=== PATIENT | female | born 1985 | race Caucasian/White ===

== ENCOUNTER → 2020-07-22 13:45 | Outpatient (BNVA) | payer BC, SELFPAY | PROVIDERS: Family Provider Family Medicine; PCP Family Medicine; Visit Provider Obstetrics & Gynecology | DX: E28.2 Polycystic ovarian syndrome (principal); Z12.4 Encounter for screening for malignant neoplasm of cervix | CPT/HCPCS: 88175 ==

== ENCOUNTER 2020-10-13 10:06 | Outpatient (CLI) | payer BC, SELFPAY ==
[2020-10-13 12:00] LABS: Estmated Average Glucose 94; Hemoglobin A1C 4.9 % (4.0-6.0)
== END 2020-10-13 10:07 | disposition home or self-care (01) ==
PROVIDERS: PCP Family Medicine; Visit Provider Internal Medicine
DX: E03.9 Hypothyroidism, unspecified (principal); E28.2 Polycystic ovarian syndrome; E66.9 Obesity, unspecified; R53.82 Chronic fatigue, unspecified; R63.5 Abnormal weight gain
CPT/HCPCS: 36415; 83036; 84439; 84443; 99205

== ENCOUNTER 2020-10-29 15:17 | Outpatient (CLI) | payer BC, SELFPAY ==
[2020-10-29 16:27] LABS: Total Volume Urine 1225 ml
[2020-10-29 16:37] LABS: Urine Creatinine 120 mg/dL (28-217)
[2020-11-08 16:15] LABS: Free Cortisol Urine 25.6; Total Urine 1225; Urine Creatinine 1.48
== END 2020-10-29 15:18 | disposition home or self-care (01) ==
PROVIDERS: PCP Family Medicine; Visit Provider Internal Medicine
DX: E03.9 Hypothyroidism, unspecified (principal); E28.2 Polycystic ovarian syndrome; R63.5 Abnormal weight gain
CPT/HCPCS: 82530; 82570

== ENCOUNTER 2020-11-15 12:00 | Outpatient (CLI) | payer BC, SELFPAY | END 2020-11-15 12:01 | disposition home or self-care (01) | LOC: SLEEP 11-16 11:31 | PROVIDERS: PCP Family Medicine; Visit Provider Internal Medicine | DX: R53.82 Chronic fatigue, unspecified (principal) | CPT/HCPCS: G0399 ==

== ENCOUNTER 2020-12-02 11:10 | Outpatient (CLI) | payer BC, SELFPAY ==
[2020-12-02 12:07] LABS: Free T4 Free Thyroxine 1.39 ng/dL (0.82-1.77)
== END 2020-12-02 11:11 | disposition home or self-care (01) ==
PROVIDERS: PCP Family Medicine; Visit Provider Internal Medicine
DX: E03.9 Hypothyroidism, unspecified (principal)
CPT/HCPCS: 36415; 84439; 84443

== ENCOUNTER 2021-05-19 11:14 | Outpatient (CLI) | payer BC, SELFPAY ==
[2021-05-19 12:36] LABS: Free T4 Free Thyroxine 1.05 ng/dL (0.82-1.77); Thyroid Stimulating Hormone 8.92 uIU/mL (0.27-4.20)
[2021-05-20 15:52] LABS: Thyroglobulin AB 1 IU/mL (< or = 1); Thyroid Peroxidase Antobodies 108 IU/mL (<9)
== END 2021-05-19 11:15 | disposition home or self-care (01) ==
LOC: LAB 11:24
PROVIDERS: PCP Family Medicine; Visit Provider Internal Medicine
DX: E03.9 Hypothyroidism, unspecified (principal)
CPT/HCPCS: 84439; 84443; 86376; 86800

== ENCOUNTER 2021-10-13 09:29 | Outpatient (CLI) | payer BC, SELFPAY ==
[2021-10-13 10:51] LABS: Free T4 Free Thyroxine 1.43 ng/dL (0.82-1.77); Thyroid Stimulating Hormone 3.67 uIU/mL (0.27-4.20)
== END 2021-10-13 09:30 | disposition home or self-care (01) ==
PROVIDERS: PCP Family Medicine; Visit Provider Internal Medicine
DX: E03.9 Hypothyroidism, unspecified (principal)
CPT/HCPCS: 84439; 84443

== ENCOUNTER 2022-01-17 12:49 | Outpatient (CLI) | payer BC, SELFPAY ==
[2022-01-17 14:01] LABS: Free T4 Free Thyroxine 2.04 ng/dL (0.82-1.77); Thyroid Stimulating Hormone 0.02 uIU/mL (0.27-4.20)
== END 2022-01-17 12:50 | disposition home or self-care (01) ==
LOC: LAB 12:51
PROVIDERS: PCP Family Medicine; Visit Provider Internal Medicine
DX: E03.9 Hypothyroidism, unspecified (principal); R53.83 Other fatigue; R63.5 Abnormal weight gain
CPT/HCPCS: 36415; 84439; 84443

== ENCOUNTER 2022-04-11 09:02 | Outpatient (CLI) | payer BC, SELFPAY ==
[2022-04-11 09:57] LABS: Free T4 Free Thyroxine 1.31 ng/dL (0.82-1.77); Thyroid Stimulating Hormone 5.94 uIU/mL (0.27-4.20)
== END 2022-04-11 09:03 | disposition home or self-care (01) ==
LOC: LAB 09:02
PROVIDERS: PCP Family Medicine; Visit Provider Internal Medicine
DX: R00.0 Tachycardia, unspecified (principal); R53.83 Other fatigue; R63.5 Abnormal weight gain; E03.9 Hypothyroidism, unspecified
CPT/HCPCS: 84439; 84443

== ENCOUNTER 2022-08-16 09:52 | Outpatient (CLI) | payer BC, SELFPAY ==
[2022-08-16 11:48] LABS: Free T4 Free Thyroxine 1.43 ng/dL (0.82-1.77); Thyroid Stimulating Hormone 1.96 uIU/mL (0.27-4.20)
== END 2022-08-16 09:53 | disposition home or self-care (01) ==
LOC: LAB 09:57
PROVIDERS: PCP Family Medicine; Visit Provider Internal Medicine
DX: E03.9 Hypothyroidism, unspecified (principal)
CPT/HCPCS: 36415; 84439; 84443

== ENCOUNTER → 2022-09-27 10:00 | Outpatient (BNVA) | payer BC, SELFPAY | PROVIDERS: PCP Family Medicine; Visit Provider Nurse Practitioner Women's Health | DX: E28.2 Polycystic ovarian syndrome (principal); Z12.4 Encounter for screening for malignant neoplasm of cervix | CPT/HCPCS: 87624 ==

== ENCOUNTER → 2022-11-15 16:44 | Outpatient (BNVA) | payer BC, SELFPAY | PROVIDERS: PCP Family Medicine; Visit Provider Internal Medicine | DX: E03.9 Hypothyroidism, unspecified (principal) | CPT/HCPCS: 84439; 84443; 84480 ==

== ENCOUNTER 2023-03-23 14:02 | Outpatient (CLI) | payer BC, SELFPAY ==
[2023-03-23 15:34] LABS: Free T4 Free Thyroxine 1.86 ng/dL (0.82-1.77); Thyroid Stimulating Hormone 2.32 uIU/mL (0.27-4.20)
== END 2023-03-23 14:03 | disposition home or self-care (01) ==
PROVIDERS: PCP Family Medicine; Visit Provider Internal Medicine
DX: E03.9 Hypothyroidism, unspecified (principal)
CPT/HCPCS: 36415; 84439; 84443

== ENCOUNTER 2023-03-29 10:18 | Outpatient (CLI) | payer BC, SELFPAY ==
[2023-03-29 11:46] LABS: Free T4 Free Thyroxine 1.91 ng/dL (0.82-1.77)
== END 2023-03-29 10:19 | disposition home or self-care (01) ==
PROVIDERS: PCP Family Medicine; Visit Provider Internal Medicine
DX: E03.9 Hypothyroidism, unspecified (principal); E28.2 Polycystic ovarian syndrome
CPT/HCPCS: 36415; 84439

== ENCOUNTER 2023-05-03 11:55 | Outpatient (CLI) | payer BC, SELFPAY | END 2023-05-03 11:56 | disposition home or self-care (01) | PROVIDERS: PCP Nurse Practitioner Family; Visit Provider Internal Medicine | DX: E03.9 Hypothyroidism, unspecified (principal); R68.89 Other general symptoms and signs; E28.2 Polycystic ovarian syndrome; R53.83 Other fatigue; E66.9 Obesity, unspecified | CPT/HCPCS: 36415; 84439 ==

== ENCOUNTER 2023-08-17 13:20 | Outpatient (CLI) | payer BC, SELFPAY ==
[2023-08-17 13:59] LABS: Free T4 Free Thyroxine 1.63 ng/dL (0.82-1.77); Thyroid Stimulating Hormone 4.25 uIU/mL (0.27-4.20)
== END 2023-08-17 13:21 | disposition home or self-care (01) ==
LOC: LAB 13:20
PROVIDERS: PCP Nurse Practitioner Family; Visit Provider Internal Medicine
DX: E03.9 Hypothyroidism, unspecified (principal)
CPT/HCPCS: 36415; 84439; 84443

== ENCOUNTER 2023-10-12 08:58 | Outpatient (CLI) | payer BC, SELFPAY ==
[2023-10-12 10:26] LABS: Free T4 Free Thyroxine 1.55 ng/dL (0.82-1.77); Thyroid Stimulating Hormone 8.59 uIU/mL (0.27-4.20)
== END 2023-10-12 08:59 | disposition home or self-care (01) ==
LOC: LAB 08:59
PROVIDERS: PCP Nurse Practitioner Family; Visit Provider Internal Medicine
DX: E03.9 Hypothyroidism, unspecified (principal)
CPT/HCPCS: 36415; 84439; 84443

== ENCOUNTER 2023-12-26 13:18 | Outpatient (CLI) | payer BC, SELFPAY ==
[2023-12-26 14:21] LABS: Free T4 Free Thyroxine 1.28 ng/dL (0.82-1.77)
== END 2023-12-26 13:19 | disposition home or self-care (01) ==
LOC: LAB 13:19
PROVIDERS: PCP Nurse Practitioner Family; Visit Provider Internal Medicine
DX: E03.9 Hypothyroidism, unspecified (principal)
CPT/HCPCS: 36415; 84439; 84443

== ENCOUNTER → 2024-07-01 11:53 | Outpatient (BNVA) | payer BC, SELFPAY | PROVIDERS: PCP Nurse Practitioner Family; Visit Provider Internal Medicine | DX: E03.9 Hypothyroidism, unspecified (principal); R68.89 Other general symptoms and signs; E28.2 Polycystic ovarian syndrome; R53.82 Chronic fatigue, unspecified; E66.9 Obesity, unspecified; R73.03 Prediabetes | CPT/HCPCS: 36415; 83036; 84439; 84443 ==

== ENCOUNTER → 2024-12-16 09:00 | Outpatient (BNVA) | payer BC, SELFPAY | PROVIDERS: PCP Nurse Practitioner Family; Visit Provider Internal Medicine | DX: R73.03 Prediabetes (principal); E66.9 Obesity, unspecified; R53.82 Chronic fatigue, unspecified; E03.9 Hypothyroidism, unspecified; E28.2 Polycystic ovarian syndrome | CPT/HCPCS: 36415; 84439; 84443 ==

== ENCOUNTER 2025-03-17 07:58 | Outpatient (CLI) | payer BC, SELFPAY ==
[2025-03-17 09:23] LABS: Free T4 Free Thyroxine 0.89 ng/dL (0.82-1.77); Thyroid Stimulating Hormone 6.93 uIU/mL (0.27-4.20)
== END 2025-03-17 07:59 | disposition home or self-care (01) ==
PROVIDERS: PCP Nurse Practitioner Family; Visit Provider Internal Medicine
DX: E03.9 Hypothyroidism, unspecified (principal); E28.2 Polycystic ovarian syndrome; R53.82 Chronic fatigue, unspecified; E66.9 Obesity, unspecified; R73.03 Prediabetes; R68.89 Other general symptoms and signs
CPT/HCPCS: 36415; 84439; 84443

== ENCOUNTER → 2025-06-03 11:12 | Outpatient (BNVA) | payer BC, SELFPAY | PROVIDERS: PCP Nurse Practitioner Family; Visit Provider Internal Medicine Endocrinology, Diabetes & Metabolism | DX: E03.9 Hypothyroidism, unspecified (principal) | CPT/HCPCS: 36415; 84439; 84443; 86364; 86376 ==